=== PATIENT | female | born 1970 | race Caucasian/White ===

== ENCOUNTER 2023-10-31 10:06 | Day surgery (SDC) | payer BC ==
[2023-10-31] MEDS: Lactated Ringers 1,000 ML IV SCH (10:26)
== END 2023-10-31 12:00 | disposition home or self-care (01) ==
LOC: CC.SDS 10:06
PROVIDERS: ATTEND Family Medicine
DX: Z12.11 Encounter for screening for malignant neoplasm of colon (principal); Q43.8 Other specified congenital malformations of intestine; J45.909 Unspecified asthma, uncomplicated; I10 Essential (primary) hypertension; E66.9 Obesity, unspecified; R11.0 Nausea; K59.00 Constipation, unspecified; Z98.84 Bariatric surgery status; Z97.8 Presence of other specified devices; Z68.25 Body mass index [BMI] 25.0-25.9, adult; Z79.899 Other long term (current) drug therapy; Z88.8 Allergy status to other drugs, medicaments and biological substances; Z88.1 Allergy status to other antibiotic agents; Z86.010 Personal history of colon polyps; Z15.09 Genetic susceptibility to other malignant neoplasm
CPT/HCPCS: J7120